=== PATIENT | female | born 1960 | race Two or more races ===

== ENCOUNTER → 2022-06-07 10:37 | Outpatient (BNVA) | payer OTHER, MEDICAID, SELFPAY | PROVIDERS: PCP Family Medicine; Visit Provider Internal Medicine Rheumatology | DX: Z13.89 Encounter for screening for other disorder (principal) ==

== ENCOUNTER 2022-06-07 12:06 | Outpatient (REF) | payer OTHER, MEDICAID, SELFPAY ==
[2022-06-07 14:05] LABS: MANUAL DIFF FLAG NO
[2022-06-07 14:24] LABS: Basophils Percent Auto 0.5 % (0-2); Eosinophils Absolute Auto 0.1 X10*3/uL (0.0-0.4); Eosinophils Percent Auto 1.3 % (0-4); Hematocrit 39.5 % (37.0-47.0); Hemoglobin 12.5 g/dl (12.0-16.0); Imm Gran Abs Auto 0.02 X10*3/uL (0.00-0.03); Imm Gran Pct Auto 0.3 % (0.0-0.4); Lymphocytes Absolute Auto 2.4 X10*3/uL (1.2-4.9); Lymphocytes Percent Auto 32.2 % (20-40); Mean Corpuscular HGB Conc 31.6 g/dl (31.0-35.0); Mean Corpuscular Hemoglobin 27.2 pg (27.0-33.0); Mean Corpuscular Volume 86.1 fL (80.0-98.0); Monocytes Absolute Auto 0.6 X10*3/uL (0.1-1.2); Monocytes Percent Auto 7.3 % (2-11); Neutrophils Absolute Auto 4.4 x10*3/uL (2.0-8.3); Neutrophils Percent Auto 58.4 % (45-73); Platelet Count 332 X10*3/uL (160-400); Red Blood Count 4.59 X10*6/uL (4.20-5.50); Red Cell Distribution Width 13.4 % (11.0-16.0); White Blood Count 7.6 X10*3/uL (4.8-10.8)
[2022-06-07 14:28] LABS: Alanine Aminotransferase 10 U/L (0-31); Albumin Level 4.3 g/dL (3.5-5.0); Alkaline Phosphatase 99 U/L (39-117); Anion Gap 14 (12-20); Aspartate Amino Transferase 18 U/L (5-31); Bilirubin Total 0.5 mg/dL (0.0-1.0); Blood Urea Nitrogen 16 mg/dL (9-16); C Reactive Protein 0.76 mg/dL (< or = 0.50); Calcium 9.4 mg/dL (8.4-10.2); Carbon Dioxide 28 mmol/L (22-29); Chloride 105 mmol/L (96-108); Estimated Glomerular Filt Rate > 60; Glucose Random 90 mg/dL (60-115); Potassium 4.5 mmol/L (3.3-5.1); Sodium 142 mmol/L (135-145); Total Protein 7.7 g/dL (6.5-8.0)
[2022-06-07 14:50] LABS: Creatinine Urine 87.05 mg/dL; Total Protein Urine Random < 7 mg/dL (<12)
[2022-06-07 15:23] LABS: Erythrocyte Sedimentation Rate 28 MM/HR (0-20)
[2022-06-08 19:48] LABS: Anti DNA DS Antibody 21 IU/mL; SM/Ribonucleoprotein Ab <1.0 NEG AI (<1.0 NEG); Smith Protein <1.0 NEG AI (<1.0 NEG)
[2022-06-12 12:14] LABS: ANA Titer 2 1:40 titer; Anti Nuclear Antibody Screen POSITIVE (NEGATIVE)
== END 2022-06-07 12:07 | disposition home or self-care (01) ==
LOC: HO.10HDL 12:06
PROVIDERS: Visit Provider Internal Medicine Rheumatology
DX: M32.9 Systemic lupus erythematosus, unspecified (principal)
CPT/HCPCS: 36415; 80053; 84156; 85025; 85652; 86038; 86039; 86140; 86225; 86235

== ENCOUNTER 2022-06-08 11:19 | Outpatient (REF) | payer OTHER, MEDICAID, SELFPAY ==
--- NOTE | ~2022-06-08 | XR_ITS ---
EXAMINATION: XR HAND, BILATERAL CLINICAL INDICATION: Pain. COMPARISON: None available. TECHNIQUE: 3 views each hand. FINDINGS: BILATERAL HAND: There is no visible acute fracture, dislocation or subluxation seen. No bony erosive changes. No periarticular spurring or loose bodies. No joint effusion seen. XR/XR hand RT min 3V IMPRESSION: Unremarkable bilateral hand exam.
--- NOTE | ~2022-06-08 | XR_ITS ---
EXAMINATION: XR HAND, BILATERAL CLINICAL INDICATION: Pain. COMPARISON: None available. TECHNIQUE: 3 views each hand. FINDINGS: BILATERAL HAND: There is no visible acute fracture, dislocation or subluxation seen. No bony erosive changes. No periarticular spurring or loose bodies. No joint effusion seen. XR/XR hand LT min 3V IMPRESSION: Unremarkable bilateral hand exam.
== END 2022-06-08 11:20 | disposition home or self-care (01) ==
LOC: HO.XRAY 11:19
PROVIDERS: Visit Provider Internal Medicine Rheumatology
DX: M79.641 Pain in right hand (principal); M79.642 Pain in left hand
CPT/HCPCS: 73130

== ENCOUNTER 2023-02-11 18:54 | Emergency (ER) | payer OTHER, MEDICAID, SELFPAY ==
--- NOTE | ~2023-02-11 | XR_ITS ---
EXAMINATION: XR SHOULDER , RIGHT CLINICAL INFORMATION: Pain COMPARISON: None available at the time of this dictation. TECHNIQUE: AP external rotation, Grashey, scapular Y, views of the shoulder. Total of 3views FINDINGS: BONES: There is no fracture or dislocation, no osteolytic or osteoblastic lesion. JOINTS: Glenohumeral joint is properly positioned. There is mild degenerative osteoarthritis of the acromioclavicular joint. SOFT TISSUE AND INCLUDED LUNG: Soft tissue calcification around humeral head suggesting calcific tendinosis. XR/XR shoulder RT min 2V IMPRESSION: * Soft tissue calcification around humeral head suggesting calcific tendinosis. * DJD AC joint. * No fracture or dislocation.
[2023-02-11 19:33] VITALS: BP 143/50; PULSE 86; RESP 18; TEMP 36.1; O2SAT 98; BMI 27.3
--- NOTE | 2023-02-11 19:35 | ED.GENADULT ---
HPI - General Adult General Chief complaint: Extremity Injury, Upper Stated complaint: RT shoulder pain Time Seen by Provider: 02/11/23 20:03 Source: patient Mode of arrival: ambulatory Limitations: no limitations History of Present Illness HPI narrative: 62 yo female with PMH of lupus, GERD, depression here with c/o being at work and lifting something heavy 1 week ago and hurting R shoulder hearing a pop. She did not report this to her boss. Has had pain since MD complaint: R shoulder pain Onset (ago): week(s) (1) Location: right and upper extremity Radiation: non-radiation Severity: moderate Quality: aching Pain Consistency: constant Relieving factors: immobilization Exacerbating factors: movement Associated symptoms: denies other symptoms Treatments prior to arrival: none Related Data Home Medications Medication Instructions Recorded Confirmed albuterol sulfate 90 mcg/actuation 2 puff inhalation Q4-6H PRN 06/02/22 06/07/22 aerosol inhaler (Ventolin HFA) cholecalciferol (vitamin D3) 25 25 mcg PO DAILY 06/02/22 06/07/22 mcg (1,000 unit) tablet (Vitamin D3) hydroxyzine HCl 25 mg tablet 25 mg PO BEDTIME 06/02/22 06/07/22 loratadine 10 mg tablet 10 mg PO DAILY 06/02/22 06/07/22 Previous Rx's Medication Instructions Recorded cyclobenzaprine 10 mg tablet 10 mg PO TID PRN muscle spasm #20 02/11/23 tabs diclofenac sodium 1 % topical gel 2 g topical QID #100 grams 02/11/23 (Voltaren Arthritis Pain) lidocaine 5 % topical patch 1 patch topical DAILY #30 ea 02/11/23 Allergies Allergy/AdvReac Type Severity Reaction Status Date / Time No Known Allergies Allergy Verified 02/11/23 19:32 Review of Systems Review of Systems: Constitutional : No Fever, No Chills ENT/Mouth : No Ear Pain, No Hoarseness, No sore throat Eyes: No Eye Pain, No Swelling, No Redness, No Foreign Body Cardiovascular : No Chest Pain, No SOB Respiratory : No Cough, No Dyspnea Gastrointestinal : No Nausea, No Vomiting, No Diarrhea, No abdominal Pain Genitourinary : No Dysuria, No Hematuria Musculoskeletal : positive joint pain, No Myalgias, No Joint Swelling Skin : No Skin lacerations, No rash Neuro : No Weakness, No Numbness, No Loss of Consciousness, No Dizziness, No Headache Psych : No Anxiety/Panic, No Depression All other systems reviewed and are negative [facility] Past Medical History Attestation statement: The following information was validated with the patient. Source: old records reviewed Medical History Systemic lupus erythematosus with organ system involvement Persistent insomnia Major depressive disorder, recurrent, in full remission Surgical History H/O colonoscopy (~07/03/13) Family History Family History (Updated 06/07/22 @ 10:50 by JORGE Cantu) Mother Uterine cancer Social History Social History Household Members: Other Household Members Other:: grandchildren Alcohol intake: never Patient Tobacco Use Status: Never used Tobacco Advance Directives: No Advance Directives Information Provided: Yes Current occupational status: unemployed Physical Exam ED Vital Signs: Vital Signs - 24 hr 02/11/23 19:33 Temperature 96.9 F Pulse Rate 86 Respiratory Rate 18 Blood Pressure 143/50 H Pulse Oximetry 98 Oxygen Delivery Method Room Air BMI result Body Mass Index 27.3 Appearance: Alert. Oriented X3. No acute distress. Eyes: Pupils equal, round and reactive to light. ENT: Pharynx normal. Neck: Normal inspection. Neck supple. CVS: Normal heart rate and rhythm. Pulses normal. Respiratory: No respiratory distress. Breath sounds normal. Abdomen: Soft and nontender. Skin: Skin warm and dry. Normal skin color. Normal skin turgor. Extremities: No lower extremity edema. R shoulder ttp and pain with ROM will not perform rotator cuff testing no joint effusion noted she is distal NV intact Neuro: Oriented X 3. No motor deficit. No sensory deficit. Course Course Course Narrative: RME- 62 year old female presents for evaluation of right shoulder pain. Plan for x-ray Medications Administered Discontinued Medications Generic Name Dose Route Start Last Admin Trade Name Freq PRN Reason Stop Dose Admin Acetaminophen 975 mg 02/11/23 20:55 02/11/23 21:10 Acetaminophen 325 Mg Tablet PO 02/11/23 20:56 975 mg ONCE ONE Administration Cyclobenzaprine HCl 10 mg 02/11/23 20:55 02/11/23 21:10 Cyclobenzaprine Hcl 10 Mg Tablet PO 02/11/23 20:56 10 mg ONCE ONE Administration Procedures Orthopedic Splinting/Casting Injury #1: Side: left Upper Extremity Injury Location: shoulder Upper Extremity Immobilizer: sling/shoulder immobilizer Medical Decision Making Medical Decision Making MDM Narrative: 62 yo female with PMH of lupus, GERD, depression here with R shouulder pain after possible work injury at this time will obtain xray and place in sling. suspect strain vs rotator cuff injury. Differential Diagnosis Differential Diagnoses: The differential diagnosis associated with the presentation includes sprain, strain, tendonitis, rotator cuff injury Independent Interpretation I performed an independent interpretation of an: Plain X-Ray (no fracture) Radiology Impression Discussion of test interpretation with radiology: I have reviewed the radiologist's reading. External Record Review External record reviewed: Inpatient record Prescription Management I considered prescription management with: Pain Medication and Other Discharge Plan Discharge Clinical Impression: Shoulder sprain Patient Disposition: Home, Self-Care Instructions: Shoulder Sprain (ED) Additional Instructions: please report this to your employer if this was a work injury. you also need to follow up with your doctor for physical therapy. return for worsening pain, numbness, blue hand or any other concerns. you can wear the sling for 3 days. * Soft tissue calcification around humeral head suggesting calcific tendinosis. * DJD AC joint. * No fracture or dislocation. Prescriptions: New cyclobenzaprine 10 mg tablet 10 mg PO TID PRN (Reason: muscle spasm) Qty: 20 0RF lidocaine 5 % adhesive patch,medicated 1 patch topical DAILY Qty: 30 0RF Rx Instructions: leave on most painful area for up to 12 hrs diclofenac sodium [Voltaren Arthritis Pain] 1 % gel 2 g topical QID Qty: 100 0RF Rx Instructions: apply to single elbow, wrist or hand; for hand includes palm/fingers/back of hand No Action hydroxyzine HCl 25 mg tablet 25 mg PO BEDTIME loratadine 10 mg tablet 10 mg PO DAILY albuterol sulfate [Ventolin HFA] 90 mcg/actuation HFA aerosol inhaler 2 puff inhalation Q4-6H PRN cholecalciferol (vitamin D3) [Vitamin D3] 25 mcg (1,000 unit) tablet 25 mcg PO DAILY Interventions: ED Discharge Assessment Last Done: 02/11/23 22:19 Discharge Date/Time: 02/11/23 22:20
--- OUTSIDE RECORDS SUMMARY | 2023-02-11 19:48 | XMS_ITS | Continuity of Care Document ---
Author Name Unknown Organization [facility] Address [address] [place] [address]- Care Team Providers Care Supervisor Home Economics Name Role Phone Buddy BURTON, Kelsea Gonzalez Primary Care Physician Encounter [facility] Date(s): 08/06/21 - 09/17/[address] [address]- Attending Physician: Yeny Faust Admitting Physician: Yeny Faust Referring Physician: Yeny Faust Allergies, Adverse Reactions, Alerts No Known Allergies Immunizations Given and Recorded Vaccine Date Status Refusal Reason influenza virus vaccine, inactivated 1 12/21/12 Gi bri influenza virus vaccine, inactivated 2 11/12/11 Gi bri tetanus/diphtheria/pertussis, acel(Tdap) 10/30/10 Given 1Result Comment: [12/21/2012] questions discussed 2Admin Note: Given at [facility] Medications Prilosec 20 mg oral enteric coated capsule 1 capsule = 20 mg, By Mouth, Daily, # 30 capsule, 11 Refills, Maintenance, EC Capsule, 1 capsule ByMouth Daily Start Date: 12/21/12 Status: Ordered Problem List Condition Effective Dates Status Health Status Inform ant ASCUS(Confirmed) 1 Active Asthma(Confirmed) 02/06/10 Active Lupus(Confirmed) Active Osteopenia(Confirmed) 2 2005 Active SLE - Systemic lupus erythematosus(Confirmed) Active Trichomonas(Confirmed) 3 Active Urge incontinence of urine(Confirmed) 02/06/10 Active Vaginal discharge(Confirmed) Active 1ascus pap 2003, atypia on biopsy 2-1.3 to hip 11/10, spine wnl 3treated 2000 and 2004 Social History Social History Type Response Smoking Status Never smoker entered on: 08/20/14 Sex
--- OUTSIDE RECORDS SUMMARY | 2023-02-11 19:48 | XMS_ITS | Continuity of Care Document ---
Author Name Unknown Organization [facility] [address] [place] [address]- Care Team Providers Care Peoplesoft Financial Developer Name Role Phone Yovani Zendejas MD Primary Care Physician Encounter [facility] Date(s): 07/26/19 - 08/02/[address] [address]- [facility] Attending Physician: Thiago BURTON [OBG]Yovani Admitting Physician: Thiago BURTON [OBG]Yovani Allergies, Adverse Reactions, Alerts Substance Reaction Severity Status NKA Active Immunizations Given and Recorded Vaccine Date Status Refusal Reason influenza virus vaccine, inactivated 1 12/21/12 Gi bri influenza virus vaccine, inactivated 2 11/12/11 Gi bri tetanus/diphtheria/pertussis, acel(Tdap) 10/30/10 Given 1Result Comment: [12/21/2012] questions discussed 2Admin Note: Given at [facility] Medications metroNIDAZOLE 500 mg oral tablet 1 tablet = 500 mg, By Mouth, Every 12 hours, for 7 days, # 14 tablet, 0 Refills, Acute 08/09/19 10:36:00 EDT, 08/02/19 10:36:00 EDT, Tablet, [id number], 152.5, cm, 07/26/19 9:59:00 EDT, Height Start Date: 08/02/19 Stop Date: 08/09/19 Status: Ordered Prilosec 20 mg oral enteric coated capsule [...] 11/10, spine wnl 3treated 2000 and 2004 Vital Signs Most recent to oldest [Reference Range]: 1 Height 152.5 cm (07/26/19 9:59 AM) Weight 63.5 kg (07/26/19 9:59 AM) Body Mass Index [18.5-24.99] 27.3 *H* (07/26/19 9:59 AM) Weight Obtained Via Standing scale (07/26/19 9:59 AM) Social History Social History Type Response Smoking Status Never smoker entered on: 08/20/14 Sex
--- OUTSIDE RECORDS SUMMARY | 2023-02-11 19:48 | XMS_ITS | Continuity of Care Document ---
Author Name Unknown Organization [facility] Address [address] [place] [id number]- Care Team Providers Care Nozzleman Name Role Phone Buddy BURTON, Kelsea Gonzalez Primary Care Physician [place] [id number] Date(s): 01/23/21 - 01/24/[address] [address]- Discharge Disposition: A-D/C Home Attending Physician: Serina Chatterjee MD Admitting Physician: Serina hCatterjee MD Referring Physician: Not on Staff, Referring MD Allergies, Adverse Reactions, Alerts Substance Reaction Severity Status NKA Active Immunizations Given and Recorded Vaccine Date Status Refusal Reason influenza virus vaccine, inactivated 1 12/21/12 Gi bri influenza virus vaccine, inactivated 2 11/12/11 Gi bri tetanus/diphtheria/pertussis, acel(Tdap) 10/30/10 Given 1Result Comment: [12/21/2012] questions discussed 2Admin Note: Given at [facility] Medications nitroglycerin 0.4 mg sublingual tablet 0.4 mg, Tablet, Sublingual, Every 5 minutes, Hold for: BP <100 systolic, PRN for Chest Pain, Routine, 01/24/21 3:10:00 EST Start Date: 01/24/21 Stop Date: 01/24/21 Status: Discontinued Prilosec 20 mg oral enteric coated capsule [...] 11/10, spine wnl 3treated 2000 and 2004 Results Radiology Reports * Exam Date Time Procedure Performing Provider Status 01/24/21 2:50 AM Chest 2 Views Frontal and Lat Magalys Lewis; Auth (Verified) Notes: (Chest 2 Views Frontal and Lat) Reason For Exam: Shortness of Breath, Fever;Other: RESULT: Chest 2 Views Frontal and Lat Chest 2 Views Frontal and Lat HX OF PRESENT ILLNESS: Pt reporting L anterior CP 4 10 x 2 days denies fevers, cough, n v d or gu sx; Reason: Other:; Shortness of Breath, Fever; Clinical Question(s): Pneumonia / Pneumonia COMPARISON: 04/13/2012 FINDINGS: LINES AND TUBES: None. LUNGS AND PLEURA: Clear lungs. Normal pulmonary vascularity. No pleural effusion. No pneumothorax. HEART, MEDIASTINUM AND AMALIA: Heart is normal in size. Normal mediastinal and hilar contour. BONES AND SOFT TISSUES: No acute abnormality. IMPRESSION: No evidence of acute abnormality. WSN: [id number] Ordering Physician: Serina Chatterjee Dictated By: Sushant Porras MD Dictated Date/Time: 01/24/21 7:50 am Reviewed By: Sushant Porras MD Signed By: Sushant Porras MD Signed Date/Time: 01/24/21 7:50 am Transcribed By: JERRELL Transcribed Date/Time: 01/24/21 7:50 am Vital Signs Most recent to oldest [Reference Range]: 1 2 3 Oxygen Saturation [94-100 %] 98 % (01/24/21 5:36 AM) 98 % (01/24/21 4:45 AM) 100 % (01/24/21 4:04 AM) Pulse Rate [55-90 bpm] 66 bpm (01/24/21 5:36 AM) 61 bpm (01/24/21 4:45 AM) 70 bpm (01/24/21 4:04 AM) Blood Pressure [90-138/55-84 mm Hg] 110/74mm Hg (01/24/21 5:36 AM) 107/60mm Hg (01/24/21 4:45 AM) 119/53mm Hg (01/24/21 4:04 AM) Respiratory Rate [16-30 br/min] 16 br/min (01/24/21 5:36 AM) 16 br/min (01/24/21 4:45 AM) 16 br/min (01/24/21 4:04 AM) Temperature [96.8-100.4 DegF] 97.6 DegF (01/24/21 5:36 AM) 97.7 DegF (01/24/21 2:27 AM) 97.8 DegF (01/24/21 1:25 AM) Mode of Delivery (Oxygen) Room air (01/24/21 5:36 AM) Room air (01/24/21 4:45 AM) Room air (01/24/21 4:04 AM) Blood pressure sites Arm, right (01/24/21 5:36 AM) Arm, right (01/24/21 4:45 AM) Arm, right (01/24/21 4:04 AM) Temperature Route Oral (01/24/21 5:36 AM) Oral (01/24/21 2:27 AM) Oral (01/24/21 1:25 AM) Social History Social History Type Response Smoking Status Never smoker entered on: 08/20/14 Sex
--- OUTSIDE RECORDS SUMMARY | 2023-02-11 19:48 | XMS_ITS | Continuity of Care Document ---
Author Name Unknown Organization [facility] [address] [place] [address]- Care Team Providers Care Relocation Commissioner Name Role Phone Cristiana BURTON, Yovani Primary Care Physician En[place] [facility] [place] Date(s): 07/26/19 - 08/25/[address] [address]- [facility] Attending Physician: Brown Acuna Referring Physician: Darryl Schulte Allergies, Adverse Reactions, Alerts Substance Reaction Severity [...]
[2023-02-11] MEDS: Cyclobenzaprine HCl 10 MG TABLET PO (21:10)
[2023-02-11] MEDS: Acetaminophen 325 MG TABLET 975 MG PO (21:10)
== END 2023-02-11 22:20 | disposition home or self-care (01) ==
PROVIDERS: Emergency Provider Emergency Medicine
DX: S43.402A Unspecified sprain of left shoulder joint, initial encounter (principal); X58.XXXA Exposure to other specified factors, initial encounter; Y93.9 Activity, unspecified; Y92.9 Unspecified place or not applicable; Y99.9 Unspecified external cause status; Z79.899 Other long term (current) drug therapy
CPT/HCPCS: 29105; 73030; 99283

== ENCOUNTER 2023-03-06 13:45 | Emergency (ER) | payer OTHER, MEDICAID, SELFPAY ==
[2023-03-06 15:31] VITALS: BP 153/79; PULSE 96; RESP 18; TEMP 36.4; O2SAT 98; BMI 24.9
--- NOTE | 2023-03-06 15:31 | ED.GENADULT ---
HPI - General Adult General Chief complaint: Extremity Injury, Upper Stated complaint: R shoulder pain Time Seen by Provider: 03/06/23 15:40 Source: patient Mode of arrival: ambulatory Limitations: no limitations History of Present Illness HPI narrative: Patient is a 62-year-old female presenting to the emergency department complaint of ongoing right shoulder pain. 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 Was seen in this emergency department on 02/11 and prescribed cyclobenzaprine, topical lidocaine patches and diclofenac. Patient states that she has not been using the cyclobenzaprine as it makes her feel shaky. She did contact Orthopedics and has an appointment on 03/12. Denies any new falls or other trauma. Denies any numbness or tingling to arm. Reports pain is worse with raising arm overhead. MD complaint: right shoulder pain Onset (ago): week(s) Location: right and upper extremity Radiation: non-radiation Severity: moderate Quality: aching Pain Consistency: colicky Relieving factors: rest Exacerbating factors: movement Associated symptoms: denies other symptoms Treatments prior to arrival: other Related Data Home Medications Medication Instructions Recorded Confirmed albuterol sulfate 90 mcg/actuation 2 puff inhalation Q4-6H PRN 06/02/22 06/07/22 aerosol inhaler (Ventolin HFA) cholecalciferol (vitamin D3) 25 25 mcg PO DAILY 06/02/22 06/07/22 mcg (1,000 unit) tablet (Vitamin D3) hydroxyzine HCl 25 mg tablet 25 mg PO BEDTIME 06/02/22 06/07/22 loratadine 10 mg tablet 10 mg PO DAILY 06/02/22 06/07/22 Previous Rx's Medication Instructions Recorded cyclobenzaprine 10 mg tablet 10 mg PO TID PRN muscle spasm #20 02/11/23 tabs diclofenac sodium 1 % topical gel 2 g topical QID #100 grams 02/11/23 (Voltaren Arthritis Pain) lidocaine 5 % topical patch 1 patch topical DAILY #30 ea 02/11/23 cyclobenzaprine 5 mg tablet 5 mg PO TID PRN muscle spasm #10 03/06/23 tabs prednisone 20 mg tablet 40 mg (2 x 20 mg) PO DAILY #10 tabs 03/06/23 Allergies Allergy/AdvReac Type Severity Reaction Status Date / Time No Known Allergies Allergy Verified 03/06/23 15:31 Review of Systems Review of Systems: As per HPI. Yes all other systems are reviewed and are negative Constitutional: Constitutional: Reports as per HPI [facility] Past Medical History Medical History Systemic lupus erythematosus with organ system involvement Persistent insomnia Major depressive disorder, recurrent, in full remission Surgical History H/O colonoscopy (~07/03/13) Family History Family History (Updated 06/07/22 @ 10:50 by JORGE Cantu) Mother Uterine cancer Social History Social History Household Members: Other Household Members Other:: grandchildren Alcohol intake: never Patient Tobacco Use Status: Never used Tobacco Advance Directives: No Advance Directives Information Provided: No Current occupational status: unemployed Physical Exam ED Vital Signs: Vital Signs - 24 hr 03/06/23 15:31 Temperature 97.6 F Pulse Rate 96 Respiratory Rate 18 Blood Pressure 153/79 H Pulse Oximetry 98 Oxygen Delivery Method Room Air BMI result Body Mass Index 24.9 Vital signs have been reviewed and appear to be correct. Blood pressure elevated. Heart rate normal. Respiratory rate normal. Temperature normal. Oxygen saturation normal. Const General: cooperative, healthy appearing and no acute distress Orientation/consciousness: oriented to person, oriented to place, oriented to time and patient oriented x3 Limitations: no limitations HENHI Head: Yes normocephalic and Yes atraumatic Ears: external ears normal General nose exam: Normal external nose present Face and sinus: Yes face symmetric Mouth: oropharynx normal and moist mucous membranes Throat: Yes uvula midline Eyes Pupils: Equal, round and reactive pupils present Neck Neck: Yes normal visual inspection and Yes supple Resp Effort & Inspection: normal respiratory effort and able to speak in complete sentences Auscultation: clear to auscultation bilaterally Cardio Rate: regular rate Rhythm: regular rhythm Heart sounds: S1 normal heart sound present and S2 normal heart sound present Skin General skin exam: elasticity normal and turgor normal Neuro General: oriented to person, oriented to place, oriented to time, patient oriented x3, moves all extremities, no focal motor deficits and CN's II-XI intact bilaterally Cranial nerves: Yes Equal, round and reactive pupils present Cognition (Neuro): normal cognition Extrem General: Yes full ROM, Yes no pedal edema and Yes no calf tenderness Right upper extremity: shoulder/upper arm Details: normal to inspection, tenderness, axillary nerve sensory function normal and normal ROM; no ecchymosis, no crepitus and no deformity Psych Mental Status: mental status grossly normal Affect: normal affect Thought process: Normal thought process present Medical Decision Making Medical Decision Making MDM Narrative: Patient is a 62-year-old female presenting to the emergency department complaint of ongoing right shoulder pain. On exam patient is awake, A+Ox3, VS WNL, afebrile, normal neurological exam without focal deficits, physical exam findings as above. Given reported symptoms and physical exam findings, initial differential includes right shoulder sprain, strain, tendonitis, rotator cuff injury. Do not feel repeat imaging is indicated as patient denies any subsequent fall or other injury since last visit. Patient has follow-up appointment with Orthopedics on 03/12. Will prescribe short course of steroids as well as lower dose of cyclobenzaprine. Advised patient to continue utilizing lidocaine patches and diclofenac gel. Return precautions discussed. Patient verbalized understanding of and agreement with plan. Differential Diagnosis Differential Diagnoses: The differential diagnosis associated with the presentation includes As per MDM. External Record Review External record reviewed: Inpatient record, Office record and Outpatient record Prescription Management I considered prescription management with: Other Discharge Plan Discharge Clinical Impression: Pain in right shoulder Patient Disposition: Home, Self-Care Instructions: Shoulder Pain (ED) Additional Instructions: You were evaluated in the emergency department today for right shoulder pain. You are being prescribed a short course of steroids to decrease inflammation. You are also being prescribed a lower dose of cyclobenzaprine which is the same muscle relaxer that you were prescribed previously. Please keep your appointment with orthopedics in March. Return to the emergency department if you develop new weakness, numbness, tingling to your arm, increasing pain, fever or any other concerning symptoms. Prescriptions: New cyclobenzaprine 5 mg tablet 5 mg PO TID PRN (Reason: muscle spasm) Qty: 10 0RF prednisone 20 mg tablet 40 mg PO DAILY Qty: 10 0RF No Action cyclobenzaprine 10 mg tablet 10 mg PO TID PRN (Reason: muscle spasm) Qty: 20 0RF lidocaine 5 % adhesive patch,medicated 1 patch topical DAILY Qty: 30 0RF Rx Instructions: leave on most painful area for up to 12 hrs diclofenac sodium [Voltaren Arthritis Pain] 1 % gel 2 g topical QID Qty: 100 0RF Rx Instructions: apply to single elbow, wrist or hand; for hand includes palm/fingers/back of hand hydroxyzine HCl 25 mg tablet 25 mg PO BEDTIME loratadine 10 mg tablet 10 mg PO DAILY albuterol sulfate [Ventolin HFA] 90 mcg/actuation HFA aerosol inhaler 2 puff inhalation Q4-6H PRN cholecalciferol (vitamin D3) [Vitamin D3] 25 mcg (1,000 unit) tablet 25 mcg PO DAILY Referrals: [facility] [place] Orthopedic Surgeons [Provider Group]
== END 2023-03-06 16:11 | disposition home or self-care (01) ==
PROVIDERS: Emergency Provider Emergency Medicine
DX: M25.511 Pain in right shoulder (principal)
CPT/HCPCS: 99282; 99283

== ENCOUNTER 2024-05-05 16:23 | Emergency (ER) | payer OTHER, MEDICAID, SELFPAY ==
[2024-05-05 16:40] VITALS: BP 139/71; PULSE 100; RESP 16; TEMP 36.6; O2SAT 98; BMI 24.0
--- NOTE | 2024-05-05 16:40 | ED.SKABFB ---
HPI - Skin/Abscess/Foreign Bdy General Chief complaint: Skin/Abscess/Foreign Body Stated complaint: ? allergic reaction to hair dye Time Seen by Provider: 05/05/24 16:50 Source: patient Mode of arrival: ambulatory Limitations: no limitations History of Present Illness ED Provider: David Robledo DO HPI narrative: 63-year-old female with past medical history of lupus with no previous allergic reactions presents to the emergency department due to itching of the scalp that encompassed her face and anterior and posterior neck, onset this morning. Patient states the only change she had was applying a new hair dye last night. She denies difficulty breathing, wheezing, nausea, vomiting, abdominal pain, diarrhea, change in voice, throat swelling or pain. She received diphenhydramine, 1 tablet, this morning with significant improvement in her symptoms but has mild residual itching over her scalp. Related Data Home Medications ?Medication ?Instructions ?Recorded ?Confirmed albuterol sulfate 90 mcg/actuation 2 puff inhalation Q4-6H PRN 06/02/22 06/07/22 aerosol inhaler (Ventolin HFA) cholecalciferol (vitamin D3) 25 25 mcg PO DAILY 06/02/22 06/07/22 mcg (1,000 unit) tablet (Vitamin D3) hydroxyzine HCl 25 mg tablet 25 mg PO BEDTIME 06/02/22 06/07/22 loratadine 10 mg tablet 10 mg PO DAILY 06/02/22 06/07/22 Previous Rx's ?Medication ?Instructions ?Recorded cyclobenzaprine 10 mg tablet 10 mg PO TID PRN muscle spasm #20 02/11/23 tabs diclofenac sodium 1 % topical gel 2 g topical QID #100 grams 02/11/23 (Voltaren Arthritis Pain) lidocaine 5 % topical patch 1 patch topical DAILY #30 ea 02/11/23 cyclobenzaprine 5 mg tablet 5 mg PO TID PRN muscle spasm #10 03/06/23 tabs prednisone 20 mg tablet 40 mg (2 x 20 mg) PO DAILY #10 tabs 03/06/23 cetirizine 10 mg tablet 10 mg PO DAILY PRN allergy 05/05/24 symptoms #14 tabs Allergies Allergy/AdvReac Type Severity Reaction Status Date / Time No Known Allergies Allergy Verified 05/05/24 16:43 Review of Systems Review of Systems: Yes all other systems are reviewed and are negative PMFSH Past Medical History Medical History Systemic lupus erythematosus with organ system involvement Persistent insomnia Major depressive disorder, recurrent, in full remission Surgical History H/O colonoscopy (~07/03/13) Family History Family History (Updated 06/07/22 @ 10:50 by JORGE Cantu) Mother Uterine cancer Social History Social History Household Members: Other Household Members Other:: grandchildren Alcohol intake: never Patient Tobacco Use Status: Never used Tobacco Advance Directives: No Advance Directives Information Provided: No Current occupational status: unemployed Physical Exam Vital Signs: Vital Signs: Last Vital Signs Temp 97.9 F 05/05/24 17:32 Pulse 100 05/05/24 17:32 Resp 16 05/05/24 17:32 BP 139/71 05/05/24 17:32 Pulse Ox 98 05/05/24 17:32 O2 Del Method Room Air 05/05/24 17:32 BMI result Body Mass Index 24.0 Constitutional: ?Alert, oriented, speaking in full sentences HEENT: ?Normocephalic, atraumatic. ?Moist mucous membranes, Mallampati class 1, no edema of the lips, tongue, palate or uvula Eyes: ?PERRL, EOMI Neck: ?Supple, nontender, no stridor Respiratory: ?Lungs clear to auscultation, no increased work of breathing, no wheezing Cardio: ?Regular rate and rhythm, no murmur GI: ?Soft, nondistended, nontender Back: ?Normal range of motion, nontender Skin: ?There is a faint rash located over the scalp on the top of the forehead with a couple areas of raised erythema on both sides of the head, otherwise no lesions Neuro: ?Alert and oriented to person, place and time, moves all 4 extremities, no focal deficits Extremities: ?No swelling or tenderness, full range of motion Psych: ?Calm, alert and cooperative, appropriate behavior Course Course Course Narrative: This is a Rapid Medical Exam performed in triage by Siomara Cifuentes PA-C. Full HPI, ROS and PE to be performed by primary ED provider. 63-year-old female presenting to the ED c/o forehead/scalp swelling, erythema, and pruritus s/p using [employer] hair dye last night. States symptoms develop to this morning. Denies known allergens, other new exposures, shortness of breath PE: + noted swelling to central forehead with faint erythema. No scaling. No appreciable rash Plan: Labs, +/- CT Medications Administered Discontinued Medications Generic Name Dose Route Start Last Admin Trade Name Freq PRN Reason Stop Dose Admin Loratadine 10 mg 05/05/24 17:05 05/05/24 17:31 Loratadine 10 Mg Tablet PO 05/05/24 17:06 10 mg ONCE ONE Administration Medical Decision Making Medical Decision Making MDM Narrative: Patient presenting with signs and symptoms consistent with contact dermatitis that improved significantly after receiving diphenhydramine prior to arrival. Ordered for loratadine here as well as a prescription for antihistamine to take daily over the next couple of days as well as diphenhydramine as needed for or itching. Patient does not have any signs of other dangerous skin conditions such as SJS or TEN. She has no signs of angioedema or anaphylaxis. Her vital signs are stable and she appears well on exam. Return precautions provided as well as instructions to avoid the hair dye or other similar dyes future. Discharge Plan Discharge Clinical Impression: Contact dermatitis Qualifiers: Contact dermatitis type: allergic Contact dermatitis trigger: dye Qualified Code(s): L23.4 - Allergic contact dermatitis due to dyes Patient Disposition: Home, Self-Care Instructions: Contact Dermatitis (ED) Additional Instructions: You were evaluated for signs and symptoms of contact dermatitis from the hair dye. There are no signs of anaphylaxis. We provided loratadine here (do not currently have cetirizine). This medication is very similar. You can continue cetirizine or loratadine at home, once a day. Please choose 1 or the other. I prescribed cetirizine. If you have continued itching, you can take diphenhydramine (Benadryl) 25 mg as needed every 6 hours. If you develop any difficulty breathing, wheezing, severe abdominal pain, vomiting or diarrhea, throat tightening or swelling or any other acute changes, please return to the emergency department. As we discussed, avoid using this hair dye or other similar dyes in the future. Prescriptions: New cetirizine 10 mg tablet 10 mg PO DAILY PRN (Reason: allergy symptoms) Qty: 14 0RF No Action cyclobenzaprine 10 mg tablet 10 mg PO TID PRN (Reason: muscle spasm) Qty: 20 0RF lidocaine 5 % adhesive patch,medicated 1 patch topical DAILY Qty: 30 0RF Rx Instructions: leave on most painful area for up to 12 hrs diclofenac sodium [Voltaren Arthritis Pain] 1 % gel 2 g topical QID Qty: 100 0RF Rx Instructions: apply to single elbow, wrist or hand; for hand includes palm/fingers/back of hand cyclobenzaprine 5 mg tablet 5 mg PO TID PRN (Reason: muscle spasm) Qty: 10 0RF prednisone 20 mg tablet 40 mg PO DAILY Qty: 10 0RF hydroxyzine HCl 25 mg tablet 25 mg PO BEDTIME loratadine 10 mg tablet 10 mg PO DAILY albuterol sulfate [Ventolin HFA] 90 mcg/actuation HFA aerosol inhaler 2 puff inhalation Q4-6H PRN cholecalciferol (vitamin D3) [Vitamin D3] 25 mcg (1,000 unit) tablet 25 mcg PO DAILY Interventions: ED Discharge Assessment Last Done: 05/05/24 17:32 Discharge Date/Time: 05/05/24 17:32 Print Language: [place]
[2024-05-05] MEDS: Loratadine 10 MG TABLET PO (17:31)
[2024-05-05 17:32] VITALS: BP 139/71; PULSE 100; RESP 16; TEMP 36.6; O2SAT 98
== END 2024-05-05 17:32 | disposition home or self-care (01) ==
PROVIDERS: Emergency Provider Emergency Medicine
DX: L23.4 Allergic contact dermatitis due to dyes (principal)
CPT/HCPCS: 99282; 99283